=== PATIENT | female | born 1980 | race Caucasian/White ===

== ENCOUNTER 2017-03-21 23:26 | Emergency (ER) | payer MEDICAID | END 2017-03-22 00:05 | disposition left against medical advice (07) | LOC: SED 23:26 | DX: R11.0 Nausea (principal); Z53.21 Procedure and treatment not carried out due to patient leaving prior to being seen by health care provider ==

== ENCOUNTER 2017-03-22 05:03 | Emergency (ER) | payer MEDICAID ==
[~2017-03-22] VITALS: Ht 167.6 cm; Wt 104.3 kg
[2017-03-22 05:03] VITALS: BP_SYST 135
[2017-03-22] MEDS ORDERED: NACL 0.9% 1,000 ML IV ONE ×2 (05:20→05:38)
[2017-03-22 05:30] VITALS: BP_SYST 135
[2017-03-22] MEDS ORDERED: ONDANSETRON HCL 4 MG/2 ML VIAL IVP ONE ×2 (05:30→05:45)
[2017-03-22] MEDS ORDERED: HYDROmorphone 1 MG INJ. 1 MG/ML AMPUL IVP ONE ×2 (05:45→06:30)
[2017-03-22 05:50] LABS: BILIRUBIN,URINE NEGATIVE (NEGATIVE); BLOOD, URINE 3+ (NEGATIVE); CLARITY/URINE SL CLOUDY (CLEAR); COLOR,URINE YELLOW (YELLOW); GLUCOSE,URINE 2+ (NEGATIVE); KETONES,URINE NEGATIVE (NEGATIVE); LEUKOCYTE ESTERASE ,URINE TRACE (NEGATIVE); NITRITE, URINE NEGATIVE (NEGATIVE); PROTEIN URINE NEGATIVE (NEGATIVE); UROBILINOGEN,URINE 0.2 (0.2-1.0)
[2017-03-22 05:57] LABS: BACTERIA,URINE MODERATE /HPF (None Seen)
[2017-03-22] MEDS ORDERED: ONDANSETRON HCL 4 MG/2 ML VIAL ONE (06:06)
[2017-03-22 06:07] LABS: BASOPHILS % (AUTO) 0.9 % (0.0-2.0); EOSINOPHILS # (AUTO) 0.2 K/uL (0.0-0.4); EOSINOPHILS % (AUTO) 2.9 % (0.0-4.0); HEMATOCRIT 34.5 % (36-48); HEMOGLOBIN 11.1 g/dL (12.0-16.0); LYMPHOCYTES # (AUTO) 2.3 K/uL (1.0-5.5); LYMPHOCYTES % (AUTO) 44.2 % (20.5-51.5); MEAN CORPUSCULAR HEMOGLOBIN 24 pg (27-31); MEAN CORPUSCULAR HGB CONC 32 % (32-36); MEAN CORPUSCULAR VOLUME 74 fL (79.0-98.0); MONOCYTES # (AUTO) 0.5 K/uL (0.0-1.0); MONOCYTES % (AUTO) 8.8 % (1.7-9.3); NEUTROPHILS # (AUTO) 2.2 K/uL (1.8-7.7); NEUTROPHILS % (AUTO) 43.2 % (40.0-70.0); PLATELET COUNT (AUTO) 151 K/uL (130-430); RED BLOOD CELL COUNT(AUTO) 4.64 MIL/uL (4.2-6.2); RED CELL DISTRIBUTION WIDTH 14.7 % (9.0-15.0); WHITE BLOOD COUNT (AUTO) 5.2 K/uL (4.8-10.8)
[2017-03-22 06:11] LABS: CALCIUM 9.1 mg/dL (8.4-11.0); CREATININE 0.92 mg/dL (0.55-1.30); POTASSIUM 4.1 mmol/L (3.5-5.1)
[2017-03-22 06:15] LABS: INR 0.9 (0.8-1.2); PROTHROMBIN TIME 9.8 SECS (9.5-12.5)
[2017-03-22 06:16] LABS: ALBUMIN 3.5 g/dL (3.4-4.8); TOTAL BILIRUBIN 0.2 mg/dL (0.0-1.0)
[2017-03-22] MEDS ORDERED: HYDROmorphone 1 MG INJ. 1 MG/ML AMPUL ONE (06:49)
== END 2017-03-22 07:13 | disposition home or self-care (01) ==
LOC: SED 05:03
DX: R10.9 Unspecified abdominal pain (principal); E11.9 Type 2 diabetes mellitus without complications; Z88.6 Allergy status to analgesic agent; Z87.442 Personal history of urinary calculi
CPT/HCPCS: 36415; 74176; 80053; 81000; 82150; 83690; 85025; 85610; 85730; 87086; 96361; 96374; 96375; 96376; 99285; J1170; J2405; J7030

== ENCOUNTER 2017-03-24 20:02 | Emergency (ER) | payer MEDICAID ==
[~2017-03-24] VITALS: Ht 167.6 cm; Wt 106.6 kg
[2017-03-24 20:15] VITALS: BP_SYST 155
[2017-03-24 20:57] LABS: BASOPHILS % (AUTO) 0.5 % (0.0-2.0); EOSINOPHILS # (AUTO) 0.1 K/uL (0.0-0.4); HEMOGLOBIN 11.6 g/dL (12.0-16.0); LYMPHOCYTES # (AUTO) 1.8 K/uL (1.0-5.5); MEAN CORPUSCULAR HEMOGLOBIN 24 pg (27-31); MEAN CORPUSCULAR HGB CONC 32 % (32-36); MEAN CORPUSCULAR VOLUME 74 fL (79.0-98.0); MONOCYTES # (AUTO) 0.3 K/uL (0.0-1.0); MONOCYTES % (AUTO) 4.9 % (1.7-9.3); NEUTROPHILS # (AUTO) 4.8 K/uL (1.8-7.7); NEUTROPHILS % (AUTO) 67.6 % (40.0-70.0); PLATELET COUNT (AUTO) 190 K/uL (130-430); RED BLOOD CELL COUNT(AUTO) 4.84 MIL/uL (4.2-6.2)
[2017-03-24 21:01] LABS: CALCIUM 9.1 mg/dL (8.4-11.0); CREATININE 0.81 mg/dL (0.55-1.30); POTASSIUM 4.1 mmol/L (3.5-5.1)
[2017-03-24] MEDS ORDERED: NACL 0.9% 1,000 ML IV ONE (21:52)
[2017-03-24] MEDS ORDERED: cefTRIAXone 1 GM IVPB PREMIX 50 ML IV ONE (22:00)
[2017-03-24] MEDS ORDERED: MORPHINE 4 MG/ML INJ. SYRINGE IVP ONE ×2 (22:00→23:15)
[2017-03-24 22:09] LABS: BILIRUBIN,URINE NEGATIVE (NEGATIVE); BLOOD, URINE 3+ (NEGATIVE); COLOR,URINE YELLOW (YELLOW); GLUCOSE,URINE 3+ (NEGATIVE); KETONES,URINE NEGATIVE (NEGATIVE); NITRITE, URINE NEGATIVE (NEGATIVE); PROTEIN URINE TRACE (NEGATIVE); UROBILINOGEN,URINE 0.2 (0.2-1.0)
[2017-03-24 22:10] LABS: ALBUMIN 3.5 g/dL (3.4-4.8); TOTAL BILIRUBIN 0.2 mg/dL (0.0-1.0); TOTAL PROTEIN, SERUM 8.2 g/dL (6.4-8.3)
[2017-03-24 22:19] LABS: CLARITY/URINE HAZY (CLEAR); LEUKOCYTE ESTERASE ,URINE 2+ (NEGATIVE)
[2017-03-24 22:20] LABS: BACTERIA,URINE FEW /HPF (None Seen); MUCUS,URINE None Seen /LPF (None Seen); WBC,URINE 20-50 /HPF (0-3)
[2017-03-24 22:27] LABS: BILIRUBIN,DIRECT 0.1 mg/dL (0.0-0.3)
[2017-03-25] MEDS ORDERED: HYDROmorphone 1 MG INJ. 1 MG/ML AMPUL IVP ONE (00:15)
[2017-03-25 00:52] VITALS: BP_SYST 121
== END 2017-03-25 00:52 | disposition home or self-care (01) ==
LOC: SED 20:02
DX: N12 Tubulo-interstitial nephritis, not specified as acute or chronic (principal); E11.29 Type 2 diabetes mellitus with other diabetic kidney complication; N28.9 Disorder of kidney and ureter, unspecified; Z88.6 Allergy status to analgesic agent; Z90.49 Acquired absence of other specified parts of digestive tract
CPT/HCPCS: 36415; 80048; 80076; 81000; 81025; 85025; 87086; 96365; 96375; 96376; 99284; J0696; J1170; J2270; J7030

== ENCOUNTER 2017-03-26 05:10 | Emergency (ER) | payer MEDICAID ==
[~2017-03-26] VITALS: Ht 170.2 cm; Wt 106.6 kg
[2017-03-26 05:25] VITALS: BP_SYST 140
== END 2017-03-26 06:15 | disposition left against medical advice (07) ==
LOC: SED 05:10
DX: N20.0 Calculus of kidney (principal); E11.29 Type 2 diabetes mellitus with other diabetic kidney complication; N28.9 Disorder of kidney and ureter, unspecified; Z88.6 Allergy status to analgesic agent; Z53.20 Procedure and treatment not carried out because of patient's decision for unspecified reasons
CPT/HCPCS: 99281

== ENCOUNTER 2017-03-26 09:14 | Emergency (ER) | payer MEDICAID ==
[~2017-03-26] VITALS: Ht 167.6 cm; Wt 106.6 kg
[2017-03-26 09:15] VITALS: BP_SYST 129
[2017-03-26] MEDS ORDERED: PROCHLORPERAZINE EDISYLATE 10 MG/2 ML VIAL IVP ONE (09:45)
[2017-03-26] MEDS ORDERED: DIPHENHYDRAMINE INJ 50 MG/ML VIAL IVP ONE (09:45)
[2017-03-26] MEDS ORDERED: MORPHINE 4 MG/ML INJ. SYRINGE IVP ONE (09:45)
[2017-03-26 10:23] LABS: BILIRUBIN,URINE NEGATIVE (NEGATIVE); BLOOD, URINE 3+ (NEGATIVE); CLARITY/URINE SL CLOUDY (CLEAR); COLOR,URINE YELLOW (YELLOW); GLUCOSE,URINE 3+ (NEGATIVE); KETONES,URINE NEGATIVE (NEGATIVE); LEUKOCYTE ESTERASE ,URINE TRACE (NEGATIVE); NITRITE, URINE NEGATIVE (NEGATIVE); PH,URINE 5.5 (5.0-8.0); PROTEIN URINE NEGATIVE (NEGATIVE); UROBILINOGEN,URINE 0.2 (0.2-1.0)
[2017-03-26 10:39] LABS: BACTERIA,URINE FEW /HPF (None Seen); MUCUS,URINE 1+ /LPF (None Seen); RBC,URINE 0-3 /HPF (0-3)
[2017-03-26] MEDS ORDERED: MORPHINE 4 MG/ML INJ. SYRINGE IM ONE (10:45)
[2017-03-26] MEDS ORDERED: PROCHLORPERAZINE EDISYLATE 10 MG/2 ML VIAL IM ONE (10:45)
[2017-03-26 12:00] VITALS: BP_SYST 124
[2017-03-27] MEDS ORDERED: TAMSULOSIN HCL 0.4 MG CAP PO SCH (09:00)
== END 2017-03-26 12:00 | disposition home or self-care (01) ==
LOC: SED 09:15
DX: N20.0 Calculus of kidney (principal); N39.0 Urinary tract infection, site not specified; E11.29 Type 2 diabetes mellitus with other diabetic kidney complication; N28.9 Disorder of kidney and ureter, unspecified; Z87.442 Personal history of urinary calculi; Z88.6 Allergy status to analgesic agent
CPT/HCPCS: 81000; 87086; 96372; 99284; J0780; J2270; J7030

== ENCOUNTER 2017-03-28 02:15 | Emergency (ER) | payer MEDICAID ==
[~2017-03-28] VITALS: Ht 165.1 cm; Wt 108.9 kg
[2017-03-28 02:15] VITALS: BP_SYST 152
--- NOTE | 2017-03-28 02:15 | NUR ---
PT IN WAITING ROOM AWAITING AVAILABLE BED . STABLE.
[2017-03-28 02:50] LABS: BILIRUBIN,URINE NEGATIVE (NEGATIVE); BLOOD, URINE 3+ (NEGATIVE); CLARITY/URINE SL CLOUDY (CLEAR); COLOR,URINE YELLOW (YELLOW); GLUCOSE,URINE 3+ (NEGATIVE); KETONES,URINE NEGATIVE (NEGATIVE); LEUKOCYTE ESTERASE ,URINE 1+ (NEGATIVE); NITRITE, URINE NEGATIVE (NEGATIVE); PROTEIN URINE TRACE (NEGATIVE); UROBILINOGEN,URINE 0.2 (0.2-1.0)
[2017-03-28 02:55] LABS: BACTERIA,URINE MANY /HPF (None Seen)
--- NOTE | 2017-03-28 02:55 | NUR ---
ER at bedside examining patient.
--- NOTE | 2017-03-28 02:55 | NUR ---
Hossein mcgarry in [facility] - 03/28/17 at 0308 by [email or web address] BETZY Crooks at bedside examining patient.
[2017-03-28 02:56] LABS: YEAST,URINE Few /HPF (None Seen)
--- NOTE | 2017-03-28 02:56 | NUR ---
Patient to ER bed 8 to gown for evaluation. Side rails up. Report given to Norma LOPEZ.
--- NOTE | 2017-03-28 02:58 | NUR ---
Went to assess patient and asked where her pain was located. Pt appeared labile and in position of comfort. She stated that it was in her R flank with nausea and vomitting. I then proceeded to ask " Will you let us admit you this time since last time you left AMA when asked the very same question?" She stated that she will not be admitted due to work constraints. I then replied "Well, how are we supposed to help you if will not let us keep you here to remedy the problem?" She then stated "Are you harrassing me!?" I replied "No I am trying to help you." She then shouted that she wanted a another nurse. I complied and addressed my charge nurse
--- NOTE | 2017-03-28 03:00 | NUR ---
Note cherrimely in EDM - 03/28/17 at 0411 by JULIANE Went to assess patient and asked where her pain was located. Pt appeared labile and in position of comfort. She stated that it was in her R flank with nausea and vomitting. I then proceeded to ask " Will you let us admit you this time since last time you left [facility] when asked the very same question?" She stated that she will not be admitted due to work constraints. I then replied "Well, how are we supposed to help you if will not let us keep you here to remedy the problem?" She then stated "Are you harrassing me!?" I replied "No I am trying to help you." She then shouted that she wanted a another nurse. I complied and addressed my charge nurse
--- NOTE | 2017-03-28 03:00 | NUR ---
ER at bedside examining patient.
--- NOTE | 2017-03-28 03:00 | NUR ---
Accompanied Dr. Gramajo to exam pt. Pt c/o right sided flank pain 02/20 that began 30 minutes prior to arrival to ED. Pt stated +n/v -d. MD asked if she received prescriptions from prior visits and pt stated "they have been misplaced". MD asked if anyone accompanied her to the ER and she stated "my mom can pick me up". MD asked what is her plan since being dx with kidney stones and pt stated "I have to have surgery. I have seen my primary doctor and I'm waiting for a referral to a urologist". MD continues to examine patient and pt present very irritated. MD asked who her PMD was and pt stated "I'm in between doctors right now". Once completed the examine, I told pt that we would need to keep the cardiac cath tech on her while she is being medicated, pt agreed.
[2017-03-28] MEDS ORDERED: NACL 0.9% 1,000 ML IV SCH (03:08)
[2017-03-28] MEDS ORDERED: HYDROmorphone 1 MG INJ. 1 MG/ML AMPUL IVP ONE (03:15)
[2017-03-28] MEDS ORDERED: DIPHENHYDRAMINE INJ 50 MG/ML VIAL IVP ONE (03:15)
[2017-03-28] MEDS ORDERED: ONDANSETRON HCL 4 MG/2 ML VIAL IVP ONE (03:15)
--- NOTE | 2017-03-28 03:22 | NUR ---
Dr. Gramajo advised patient that we would need to have her mother present prior to medicating her with pain medication. Pt stated "I don't want my mother to have to be waiting around for me so I will just take a taxi home, my mother needs to sleep".
[2017-03-28 03:39] LABS: BARBITURATE, URINE NEGATIVE (NEG <=200); BENZODIAZEPINE, URINE POSITIVE (NEG <=150); CANNABINOID, URINE NEGATIVE (NEG <=50); COCAINE, URINE NEGATIVE (NEG <=150); METHAMPHETAMINES SCREEN,URINE NEGATIVE (NEG <=500); OPIATE, URINE POSITIVE (NEG <=100); PHENCYCLIDINE SCREEN,URINE NEGATIVE (NEG <=25); UR TRICYCLIC ANTIDEPRESSANTS NEGATIVE (NEG <=300); URINE AMPHETAMINE NEGATIVE (NEG <=500); URINE METHADONE NEGATIVE (NEG <=200); URINE OXYCODONE SCREEN NEGATIVE (NEG <=100); URINE PROPOXYPHENE SCREEN NEGATIVE (NEG <=300)
--- NOTE | 2017-03-28 04:15 | NUR ---
Pt was offered a wheelchair to be escorted out to [facility]. Pt began yelling and becoming irrate. Pt stated "you guys are being fucking rude and just want to piss me off!" I advised pt that she does not need to yell or use foul language. Pt continued to raise her voice and refuse to be escorted out with the wheelchair. Pt stated "I know my body and my limits and don't need a wheelchair". I advised pt that she is heavily medicated on narcotics and is a fall risk and we are looking out for her safety. Pt continued to get loud and request her discharge papers. I then compromised with pt and told her that we will walk out with her until her semi truck driver arrives. Pt stated "that is what I have been telling you guys". Pt continued to yell and state that "you guys are not helping me, you guys are harrassing me!"
[2017-03-28 04:30] VITALS: BP_SYST 148
--- NOTE | 2017-03-28 04:30 | NUR ---
Patient given written and verbal discharge instructions and verbalizes understanding. ER MD discussed with patient the results and treatment provided. Patient in stable condition. ID arm band removed. IV catheter removed intact and dressing applied, no active bleeding. Patient educated on pain management and to follow up with PMD. Pain Scale 0/10. Opportunity for questions provided and answered.
--- NOTE | 2017-03-28 04:35 | NUR ---
Patient seen get in car of truck driver heavy and off [facility] parking lot.
== END 2017-03-28 04:30 | disposition home or self-care (01) ==
LOC: SED 02:15
DX: R10.9 Unspecified abdominal pain (principal); E11.9 Type 2 diabetes mellitus without complications; D64.9 Anemia, unspecified; Z87.442 Personal history of urinary calculi; Z98.890 Other specified postprocedural states
CPT/HCPCS: 80307; 81000; 81025; 87086; 96361; 96374; 96375; 99284; J1170; J1200; J2405; J7030

== ENCOUNTER 2018-02-14 04:39 | Emergency (ER) | payer MEDICAID ==
[~2018-02-14] VITALS: Ht 167.6 cm; Wt 116.6 kg
[2018-02-14 04:39] VITALS: BP_SYST 149
[2018-02-14] MEDS ORDERED: ACETAMINOPHEN 325 MG TABLET PO ONE (05:15)
[2018-02-14] MEDS ORDERED: ONDANSETRON 4 MG ODT TAB PO ONE (05:15)
[2018-02-14 06:10] LABS: BASOPHILS # (AUTO) 0.1 K/uL (0.0-0.2); EOSINOPHILS # (AUTO) 0.1 K/uL (0.0-0.4); EOSINOPHILS % (AUTO) 2.4 % (0.0-4.0); HEMOGLOBIN 11.9 g/dL (12.0-16.0); LYMPHOCYTES % (AUTO) 38.7 % (20.5-51.5); MEAN CORPUSCULAR HEMOGLOBIN 24 pg (27-31); MEAN CORPUSCULAR HGB CONC 33 % (32-36); MEAN CORPUSCULAR VOLUME 73 fL (79.0-98.0); MONOCYTES # (AUTO) 0.4 K/uL (0.0-1.0); MONOCYTES % (AUTO) 7.9 % (1.7-9.3); NEUTROPHILS # (AUTO) 2.7 K/uL (1.8-7.7); PLATELET COUNT (AUTO) 151 K/uL (130-430); RED BLOOD CELL COUNT(AUTO) 4.92 MIL/uL (4.2-6.2); WHITE BLOOD COUNT (AUTO) 5.3 K/uL (4.8-10.8)
[2018-02-14 06:17] LABS: CALCIUM 8.4 mg/dL (8.4-11.0); CREATININE 0.88 mg/dL (0.55-1.30); POTASSIUM 4.1 mmol/L (3.5-5.1)
[2018-02-14 06:21] LABS: ALBUMIN 3.5 g/dL (3.4-4.8); TOTAL BILIRUBIN 0.4 mg/dL (0.0-1.0)
[2018-02-14 06:34] LABS: BILIRUBIN,URINE NEGATIVE (NEGATIVE); BLOOD, URINE 2+ (NEGATIVE); CLARITY/URINE HAZY (CLEAR); COLOR,URINE YELLOW (YELLOW); GLUCOSE,URINE 3+ (NEGATIVE); KETONES,URINE NEGATIVE (NEGATIVE); LEUKOCYTE ESTERASE ,URINE TRACE (NEGATIVE); NITRITE, URINE NEGATIVE (NEGATIVE); PROTEIN URINE 1+ (NEGATIVE); UROBILINOGEN,URINE 0.2 (0.2-1.0)
[2018-02-14 06:47] LABS: BACTERIA,URINE FEW /HPF (None Seen); RBC,URINE 0-3 /HPF (0-3); WBC,URINE 50-80 /HPF (0-3)
[2018-02-14 06:48] LABS: MUCUS,URINE None Seen /LPF (None Seen)
[2018-02-14] MEDS ORDERED: cefTRIAXone 2 GM VIAL IM ONE (07:00)
[2018-02-14 07:38] VITALS: BP_SYST 114
== END 2018-02-14 07:43 | disposition home or self-care (01) ==
LOC: SED 04:39
DX: R10.9 Unspecified abdominal pain (principal); G89.29 Other chronic pain; N39.0 Urinary tract infection, site not specified; E11.29 Type 2 diabetes mellitus with other diabetic kidney complication; N28.9 Disorder of kidney and ureter, unspecified; Z88.6 Allergy status to analgesic agent
CPT/HCPCS: 36415; 74176; 80053; 81000; 81025; 83690; 84703; 85025; 87086; 96372; 99285; J0696; Q0162

== ENCOUNTER 2021-07-20 16:42 | Emergency (ER) | payer MEDICAID ==
[~2021-07-20] VITALS: Ht 165.1 cm; Wt 104.3 kg
[2021-07-20 16:45] VITALS: BP_SYST 127
[2021-07-20 18:27] LABS: BASOPHILS % (AUTO) 0.8 % (0.0-2.0); EOSINOPHILS # (AUTO) 0.1 K/uL (0.0-0.4); EOSINOPHILS % (AUTO) 2.2 % (0.0-4.0); HEMATOCRIT 38.7 % (36-48); HEMOGLOBIN 12.8 g/dL (12.0-16.0); LYMPHOCYTES # (AUTO) 1.5 K/uL (1.0-5.5); LYMPHOCYTES % (AUTO) 26.6 % (20.5-51.5); MEAN CORPUSCULAR HEMOGLOBIN 26 pg (27-31); MEAN CORPUSCULAR HGB CONC 33 % (32-36); MEAN CORPUSCULAR VOLUME 78 fL (79.0-98.0); MONOCYTES # (AUTO) 0.4 K/uL (0.0-1.0); MONOCYTES % (AUTO) 7.5 % (1.7-9.3); NEUTROPHILS # (AUTO) 3.5 K/uL (1.8-7.7); NEUTROPHILS % (AUTO) 62.9 % (40.0-70.0); PLATELET COUNT (AUTO) 168 K/uL (130-430); RED BLOOD CELL COUNT(AUTO) 4.97 MIL/uL (4.2-6.2); RED CELL DISTRIBUTION WIDTH 18.2 % (9.0-15.0); WHITE BLOOD COUNT (AUTO) 5.6 K/uL (4.8-10.8)
[2021-07-20 18:39] LABS: CALCIUM 9.2 mg/dL (8.4-11.0); CREATININE 1.04 mg/dL (0.55-1.30); POTASSIUM 4.4 mmol/L (3.5-5.1)
[2021-07-20 18:51] LABS: ALBUMIN 3.8 g/dL (3.4-4.8); TOTAL BILIRUBIN 0.3 mg/dL (0.0-1.0)
[2021-07-20] MEDS ORDERED: ONDANSETRON HCL 4 MG/2 ML VIAL IVP ONE (19:00)
[2021-07-20] MEDS ORDERED: MORPHINE 4 MG INJ. 4 MG/ML VIAL IVP ONE (19:00)
[2021-07-20 19:10] LABS: BILIRUBIN,URINE NEGATIVE (NEGATIVE); BLOOD, URINE NEGATIVE (NEGATIVE); COLOR,URINE YELLOW (YELLOW); GLUCOSE,URINE 3+ (NEGATIVE); KETONES,URINE NEGATIVE (NEGATIVE); LEUKOCYTE ESTERASE ,URINE NEGATIVE (NEGATIVE); NITRITE, URINE NEGATIVE (NEGATIVE); PH,URINE 6.5 (5.0-8.0); PROTEIN URINE NEGATIVE (NEGATIVE); UROBILINOGEN,URINE 0.2 (0.2-1.0)
[2021-07-20 19:12] LABS: CLARITY/URINE SLIGHTLY HAZY (CLEAR)
[2021-07-20] MEDS ORDERED: INSULIN REGULAR, HUMAN 10 UNITS/0.1 ML INJ IVP ONE (19:15)
[2021-07-20] MEDS ORDERED: NACL 0.9% 1,000 ML IV ONE (19:15)
[2021-07-20 19:18] LABS: BACTERIA,URINE FEW /HPF (None Seen); RBC,URINE 0-3 /HPF (0-3)
[2021-07-20 19:19] LABS: YEAST,URINE Few /HPF (None Seen)
[2021-07-20 20:40] VITALS: BP_SYST 134
[2021-07-20] MEDS ORDERED: fentaNYL CITRATE/PF 100 MCG/2 ML AMP IVP ONE (20:45)
== END 2021-07-20 21:30 | disposition left against medical advice (07) ==
LOC: SED 16:42
DX: R10.9 Unspecified abdominal pain (principal); R11.2 Nausea with vomiting, unspecified; E11.9 Type 2 diabetes mellitus without complications; Z79.899 Other long term (current) drug therapy
CPT/HCPCS: 36415; 76770; 80053; 81000; 81025; 82962; 83690; 84702; 85025; 87086; 96374; 96375; 99285; J2270; J2405; J3010; J1815

== ENCOUNTER 2021-08-19 09:53 | Emergency (ER) | payer MEDICAID, SELFPAY ==
[~2021-08-19] VITALS: Ht 162.6 cm; Wt 104.3 kg
[2021-08-19 10:00] VITALS: BP_SYST 109
[2021-08-19 10:57] LABS: BASOPHILS % (AUTO) 0.6 % (0.0-2.0); EOSINOPHILS # (AUTO) 0.1 K/uL (0.0-0.4); HEMATOCRIT 31.9 % (36-48); LYMPHOCYTES # (AUTO) 1.2 K/uL (1.0-5.5); LYMPHOCYTES % (AUTO) 15.8 % (20.5-51.5); MEAN CORPUSCULAR HEMOGLOBIN 27 pg (27-31); MEAN CORPUSCULAR HGB CONC 35 % (32-36); MEAN CORPUSCULAR VOLUME 77 fL (79.0-98.0); MONOCYTES # (AUTO) 0.6 K/uL (0.0-1.0); MONOCYTES % (AUTO) 8.6 % (1.7-9.3); NEUTROPHILS # (AUTO) 5.6 K/uL (1.8-7.7); PLATELET COUNT (AUTO) 139 K/uL (130-430); RED BLOOD CELL COUNT(AUTO) 4.13 MIL/uL (4.2-6.2); RED CELL DISTRIBUTION WIDTH 16.5 % (9.0-15.0); WHITE BLOOD COUNT (AUTO) 7.5 K/uL (4.8-10.8)
[2021-08-19 11:01] LABS: CALCIUM 8.7 mg/dL (8.4-11.0); CREATININE 1.2 mg/dL (0.55-1.30); POTASSIUM 4.3 mmol/L (3.5-5.1)
[2021-08-19 11:07] LABS: ALBUMIN 2.3 g/dL (3.4-4.8); TOTAL BILIRUBIN 0.4 mg/dL (0.0-1.0)
--- NOTE | 2021-08-19 11:52 | NUR ---
pt taken to ct , ua sent to lab.
--- NOTE | 2021-08-19 12:00 | NUR ---
RECEIVED PT IN [facility] AOX4. C/O RIGHT SIDED FLANK PAIN X2 DAYS. DENIES ANY URINARY SYMPTOMS, UA COLLECTED AND SENT PER ORDER. NAD. SAFETY MAINTAINED.
[2021-08-19 12:19] LABS: C-REACTIVE PROTEIN QUANT 21.5 mg/dL (0-0.5)
[2021-08-19 12:36] LABS: BILIRUBIN,URINE NEGATIVE (NEGATIVE); BLOOD, URINE 3+ (NEGATIVE); CLARITY/URINE CLEAR (CLEAR); COLOR,URINE YELLOW (YELLOW); GLUCOSE,URINE 3+ (NEGATIVE); KETONES,URINE NEGATIVE (NEGATIVE); LEUKOCYTE ESTERASE ,URINE NEGATIVE (NEGATIVE); NITRITE, URINE NEGATIVE (NEGATIVE); PROTEIN URINE 1+ (NEGATIVE); UROBILINOGEN,URINE 0.2 (0.2-1.0)
[2021-08-19 12:54] LABS: BARBITURATE, URINE NEGATIVE (NEG <=200); BENZODIAZEPINE, URINE POSITIVE (NEG <=150); CANNABINOID, URINE NEGATIVE (NEG <=50); COCAINE, URINE NEGATIVE (NEG <=150); METHAMPHETAMINES SCREEN,URINE NEGATIVE (NEG <=500); OPIATE, URINE POSITIVE (NEG <=100); PHENCYCLIDINE SCREEN,URINE NEGATIVE (NEG <=25); UR TRICYCLIC ANTIDEPRESSANTS POSITIVE (NEG <=300); URINE AMPHETAMINE NEGATIVE (NEG <=500); URINE METHADONE NEGATIVE (NEG <=200); URINE OXYCODONE SCREEN NEGATIVE (NEG <=100); URINE PROPOXYPHENE SCREEN NEGATIVE (NEG <=300)
[2021-08-19] MEDS ORDERED: HYDR-3917 PO (12:58)
[2021-08-19] MEDS ORDERED: INSULIN REGULAR, HUMAN 10 UNITS/0.1 ML INJ SUBCUT ONE (13:00)
[2021-08-19 13:16] LABS: BACTERIA,URINE FEW /HPF (None Seen)
--- NOTE | 2021-08-19 14:45 | NUR ---
pt. sound asleep in [place], [facility] went to discharge pt. stated no way to get back to her jail, she is currently homeless and staying at a jail ([facility]) and requesting ambulance ride back, notified pharmacist in charge owner
--- NOTE | 2021-08-19 14:58 | NUR ---
MAILING MANAGER CALLED FOR EVALUATION
[2021-08-19 15:45] VITALS: BP_SYST 123
--- NOTE | 2021-08-19 15:45 | NUR ---
Patient given written and verbal discharge instructions and verbalizes understanding. ER Dr. Roman discussed with patient the results and treatment provided. Patient in stable condition. ID arm band removed. Rx of [place] given. Patient educated on pain management and to follow up with PMD. Pain Scale 0, pt. has been sound asleep while waiting for arrangements to be made for transportation home. Opportunity for questions provided and answered. Medication side effect fact sheet provided.
== END 2021-08-19 15:45 | disposition home or self-care (01) ==
LOC: SED 09:53
DX: E11.65 Type 2 diabetes mellitus with hyperglycemia (principal); R10.9 Unspecified abdominal pain; Z88.8 Allergy status to other drugs, medicaments and biological substances; Z79.899 Other long term (current) drug therapy
CPT/HCPCS: 36415; 74176; 76376; 80053; 80307; 81000; 81025; 82150; 83605; 83690; 84703; 85025; 86140; 87086; 96372; 99284; J1815